=== PATIENT | female | born 1955 | race Caucasian/White ===

== ENCOUNTER 2017-08-07 09:30 | Outpatient (CLI) | payer BC ==
[2017-08-07 10:15] LABS: eGFR (African) > 60; eGFR (Non-African) > 60
--- NOTE | 2017-08-07 10:58 | Diagnostic Imaging Report ---
LINDA OLSON [facility] [id number] [facility].[address] [address] Report Submission Date: Aug 07, 2017 10:15:51 AM BARN WORK[employer] Patient Study Name: TARAS DIALLO Date: Aug 07, 2017 9:49:25 AM [employer]ARN WORK[employer] Modality Type: CR Gender: F Description: LOWER EXTREMITY : 55 Institution: [facility] Physician: LINDA OLSON Examination: Plain film femur History: Discomfort Comparison exams: None provided Findings: 4 views of the femur demonstrate normal cortical margins. No fracture no dislocation. Mild knee articular degenerative changes. No soft tissue abnormality. Impression: No acute appearing osseous abnormality. Electronically signed on Aug 07, 2017 10:15:51 AM BARN WORKER by: Handy SHERMAN
== END 2017-08-07 09:32 ==
LOC: LAB 09:30
PROVIDERS: ATTEND Family Medicine
DX: M79.651 Pain in right thigh (principal); I10 Essential (primary) hypertension
CPT/HCPCS: 36415; 73552; 80053; 80061

== ENCOUNTER 2019-05-23 09:14 | Outpatient (CLI) | payer BC ==
[2019-05-23 11:33] LABS: HDL 44 mg/dL (>40); eGFR (Non-African) > 60
== END 2019-05-23 09:19 ==
LOC: LAB 09:14
PROVIDERS: ATTEND Family Medicine
DX: I10 Essential (primary) hypertension (principal)
CPT/HCPCS: 36415; 80053; 80061; 88148; G0143